=== PATIENT | male | born 1995 | race Caucasian/White ===

== ENCOUNTER 2022-05-02 10:23 | Emergency (ER) | payer MEDICAID, SELFPAY ==
[2022-05-02 10:24] VITALS: BP 151/95; PULSE 102; RESP 16; TEMP 36.3; O2SAT 98; BMI 26.2
--- NOTE | 2022-05-02 10:32 | RAD_ITS ---
STUDY: X-RAY - RIGHT ANKLE REASON FOR EXAM: Male, 26 years old. Pain and swelling following injury. TECHNIQUE: 3 view(s) of the ankle. COMPARISON: None. FINDINGS: Normal visualized distal tibia and fibula. Normal medial and lateral malleoli. Normal tibiotalar articulation and ankle mortise. Normal visualized talus and calcaneus. The visualized subtalar, talonavicular, calcaneocuboid and tarsal articulations are normal. Diffuse lateral soft tissue swelling. Small ankle joint effusion. RAD/Ankle min 3 Views IMPRESSION: Diffuse lateral soft tissue swelling and small ankle joint effusion. Electronically Signed: Obi Tyson MD at 10:58 EDT ,
--- NOTE | 2022-05-02 10:32 | RAD_ITS ---
STUDY: X-RAY - RIGHT FOOT CLINICAL: Male, 26 years old. Pain and swelling following injury. TECHNIQUE: 3 view(s) of the foot. COMPARISON: None. FINDINGS: Normal talus, calcaneus, and tarsal bones. Normal visualized subtalar, talonavicular, calcaneocuboid, tarsal and tarsometatarsal articulations. Normal metatarsi. Normal metatarsophalangeal joint of the great toe. Normal tibial and fibular sesamoid bones. Normal interphalangeal joint of the great toe. Normal phalanges of the great toe. Normal second through fifth metatarsophalangeal joints. Normal interphalangeal joints and phalanges of the lesser toes. Lateral soft tissue swelling. RAD/Foot min 3 Views IMPRESSION: Lateral soft tissue swelling. Electronically Signed: Obi Tyson MD at 10:59 EDT ,
--- NOTE | 2022-05-02 10:41 | EDS_ITS ---
HPI <TRINH Smyth - Last Filed: 05/02/22 11:42> History of Present Illness Chief Complaint: Lower Extremity Injury Narrative Narrative: 26-year-old male with no significant ankle history presents the emergency department for right ankle pain. Patient was playing santos ball this morning, jumped up and inverted his ankle. He has had injuries to this ankle in the past. He denies any other injury. Patient states that he was able to walk off the court, did think about playing again however the pain persisted. He states that the swelling got worse, this made him uncomfortable and is here for evaluation. PFSH <TRINH Smyth - Last Filed: 05/02/22 11:42> [facility], [facility] Medical History no medical history Home Medications ibuprofen 800 mg PO Q8H #20 tab 05/02/22 [Rx Last Taken Unknown] Allergy/AdvReac Type Severity Reaction Status Date / Time No Known Allergies Allergy Verified 05/02/22 10:25 Surgical History no surgical history Social History Smoking Status: Never smoker ROS <TRINH Smyth - Last Filed: 05/02/22 11:42> ROS ED ROS Narrative Constitutional: Negative for fever, chills, weight loss, weakness Eyes: Negative for vision loss, vision change, double vision ENT: Negative for any sore throat, ear pain, congestion Cardiovascular: Negative for any chest pain, tightness, palpitations Respiratory: Negative for any cough, sputum production, hemoptysis, dyspnea, dyspnea on exertion, orthopnea Gastrointestinal: Negative for any abdominal pain, nausea, vomiting, diarrhea, constipation, blood in stool, blood in vomit : Negative for any urinary frequency, dysuria, retention, blood in urine Muscle skeletal: Negative for any muscle joint pain, stiffness, myalgias, arthralgias, neck pain, back pain. Positive for right ankle pain Neurological: Negative for any headache, syncope, numbness or tingling, dizziness Skin: Negative for any rashes, lumps, itching, abrasions, lacerations Psychiatric: Negative for any depression, anxiety, stress, suicidal ideation, homicidal ideation Hematologic: Negative for any easy bruising, excessive bruising, easy bleeding Allergies: Negative for any eczema, hives, rash EXAM <TRINH Smyth Last Filed: 05/02/22 11:42> Physical Exam Narrative Exam Narrative: Vital signs reviewed. Extremities: Patient's right ankle shows ecchymosis, edema to both the lateral, medial malleolus. Patient swelling does go up to the distal tibia-fibula. Patient does have +2 pedal pulse. Has good feeling to the foot. Negative for any neurological focal deficit. He does have discomfort when trying to dorsiflex, plantarflex. Neuro: Cranial nerves II through XII intact, no focal neurological deficits. Skin: Clean dry and intact with no rash, purpura, petechiae, vesicles or pustules. Backs/flank: No CVA tenderness, no midline spinal tenderness, no deformity. Psych: Normal mood and affect. No SI, HI or acute psychosis. Const Vital Signs: 05/02/22 10:24 Temperature 97.4 F L Temperature Source Temporal Pulse Rate 102 H Respiratory Rate 16 Blood Pressure 151/95 H Blood Pressure Mean 113 Pulse Ox 98 Oxygen Delivery Method Room Air Positive well nourished and well developed General Appearance ED: well developed <Dr. Ronald Zavala MD - Last Filed: 05/02/22 13:47> Physical Exam Const Vital Signs: 05/02/22 10:24 Temperature 97.4 F L Temperature Source Temporal Pulse Rate 102 H Respiratory Rate 16 Blood Pressure 151/95 H Blood Pressure Mean 113 Pulse Ox 98 Oxygen Delivery Method Room Air MDM <TRINH Smyth - Last Filed: 05/02/22 11:42> [facility] MDM Narrative Medical decision making narrative: Patient appears well, patient appears nontoxic, vital signs are stable. Patient presents to the emergency department with right ankle pain following playing basketball today. Patient's physical examination shows a significant amount of swelling around the bilateral m alleoli, patient did receive x-rays of the right ankle as well as the right foot. These were read by the ER attending, they did show diffuse lateral soft tissue swelling and small ankle joint effusion, negative for any osseous abnormality of the foot or right ankle. Due to significant swelling, concern for ligamental injury, patient placed in a walking boot, given crutches and will be nonweightbearing for 1 week. He will receive orthopedic follow-up for further work-up secondary to these significant ankle injuries. He will be given ibuprofen 800 mg for home, instructed to return for any worsening symptoms. Patient is agreeable with the plan and is stable for discharge. Radiography Diagnostic Testing: Clinical Impression(s) from Imaging Studies Ankle X-Ray 05/02/22 10:32 IMPRESSION: Diffuse lateral soft tissue swelling and small ankle joint effusion. Electronically Signed: Obi Tyson MD at 10:58 EDT , Foot X-Ray 05/02/22 10:32 IMPRESSION: Lateral soft tissue swelling. Electronically Signed: Obi Tyson MD at 10:59 EDT , <Dr. Ronald Zavala MD - Last Filed: 05/02/22 13:47> [facility] MDM Narrative Medical decision making narrative: I have personally performed a face to face assessment of the patient and have reviewed the CLEM Note. I performed a subs tantive portion of the visit including all aspects of the following. My hardy findings include: History is patient was playing basketball and had an inversion injury of his right ankle this morning about 630. He does report a history of multiple prior injuries to this ankle. No other injury. Exam shows fair amount of swelling diffusely around the ankle but mostly in the anterior lateral aspect. But there is no deformity. No tenderness at the calcaneus or fifth metatarsal. Achilles is intact to palpation and Keller test. No proximal tenderness. Pulse capillary refill sensation is intact distally. The ankle has a pretty large amount of swelling and is really hard to stress the ligaments I think due to this. Because of the amount of swelling I am concerned about ligamentous injury but do not get any laxity on exam. Medical Decison Making x-rays show no fracture. I am concerned about ligamentous injury. I think this patient may do well in a cast boot, nonweightbearing, crutches and close follow-up for repeat exam. He should elevate well above the heart. Radiography Diagnostic Testing: Clinical Impression(s) from Imaging Studies Ankle X-Ray 05/02/22 10:32 IMPRESSION: Diffuse lateral soft tissue swelling and small ankle joint effusion. Electronically Signed: Obi Tyson MD at 10:58 EDT , Foot X-Ray 05/02/22 10:32 IMPRESSION: Lateral soft tissue swelling. Electronically Signed: Obi Tyson MD at 10:59 EDT , Discharge Plan Triage Chief Complaint: Lower Extremity Injury ED Midlevel Provider: Endy Aguilar ED Provider: Ronald Zavala Dx/Rx/DC Orders Clinical Impression: Ankle sprain Instructions: Treating Ankle Sprains, Self-Care for Strains and Sprains Prescriptions: New ibuprofen 800 mg tablet 800 mg PO Q8H Qty: 20 RF: 0 Primary Care Provider: Care Physician,No Primary Referrals: Kota Nowak, [STAFF PHYSICIAN] - As Needed Care Physician,No Primary [Primary Care Provider] - Activity Restrictions/Additional Instructions: Please perform nonweightbearing activity for 1 week. Use the walking boot as needed. Please ice, elevate and use compression. Dr. Nowak is an orthopedic to follow-up with due to your significant ligamental injuries to your right ankle. Print Language: Divehi Disposition Disposition: Home, Self Care Discharge Date/Time: 05/02/22 11:49
--- NOTE | 2022-05-02 11:47 | ED.RN ---
unable to get walking boot. air stirrup and harriet ordered as replacement. pt has crutches at home. pt appreciative of care.
== END 2022-05-02 11:49 | disposition home or self-care (01) ==
PROVIDERS: Emergency Provider Emergency Medicine; Visit Provider Emergency Medicine
DX: S93.401A Sprain of unspecified ligament of right ankle, initial encounter (principal); Y93.64 Activity, baseball
CPT/HCPCS: 73610; 73630; 99283

== ENCOUNTER 2022-05-03 10:02 | Emergency (ER) | payer MEDICAID, SELFPAY ==
[2022-05-03 10:04] VITALS: BP 169/98; PULSE 67; RESP 14; TEMP 36.2; O2SAT 95; BMI 26.2
[2022-05-03] MEDS: Ondansetron ODT 4 MG Tablet 8 MG PO (10:29)
[2022-05-03] MEDS: morphine 10 MG/ML Syringe 6 MG IM (10:29)
--- NOTE | 2022-05-03 10:31 | EX.ED.DYSGE1 ---
HPI <TRINH Smyth - Last Filed: 05/03/22 11:32> History of Present Illness Chief Complaint: Lower Extremity Injury Narrative Narrative: 26-year-old male with no stated medical history who was seen here yesterday after a sprained ankle with edema, ecchymosis placed on ibuprofen, nonweightbearing, crutches with Darian wrap presents the emergency department with worsening swelling, pain. Patient states that he has been elevating in bed, he states the pain has moved to his foot, secondary to the edema and his toes are hurting. Patient states that he is using his ibuprofen, he did have some [place] leftover from a prior surgery and try that however he is still in considerable mount of pain. Patient denies any decreased sensation. Patient denies any pain to his calf, knee. PFSH <TRINH Smyth - Last Filed: 05/03/22 11:32> PFSH Medical History no medical history Home Medications ibuprofen 800 mg PO Q8H #20 tab 05/02/22 [Rx Last Taken Unknown] ondansetron 4 mg PO Q8H PRN #10 tab 05/03/22 [Rx Last Taken Unknown] oxycodone-acetaminophen [Percocet] 1 tab PO Q6H PRN 3 Days #10 tab 05/03/22 [Rx Last Taken Unknown] Allergy/AdvReac Type Severity Reaction Status Date / Time No Known Allergies Allergy Verified 05/03/22 10:04 Surgical History no surgical history Social History Smoking Status: Never smoker ROS <TRINH Smyth - Last Filed: 05/03/22 11:32> ROS ED ROS Narrative Constitutional: Negative for fever, chills, weight loss, weakness Eyes: Negative for vision loss, vision change, double vision ENT: Negative for any sore throat, ear pain, congestion Cardiovascular: Negative for any chest pain, tightness, palpitations Respiratory: Negative for any cough, sputum production, hemoptysis, dyspnea, dyspnea on exertion, orthopnea Gastrointestinal: Negative for any abdominal pain, nausea, vomiting, diarrhea, constipation, blood in stool, blood in vomit : Negative for any urinary frequency, dysuria, retention, blood in urine Muscle skeletal: Negative for any muscle joint pain, stiffness, myalgias, arthralgias, neck pain, back pain. Positive for right ankle pain, right foot pain secondary to edema, swelling. Neurological: Negative for any headache, syncope, numbness or tingling, dizziness Skin: Negative for any rashes, lumps, itching, abrasions, lacerations Psychiatric: Negative for any depression, anxiety, stress, suicidal ideation, homicidal ideation Hematologic: Negative for any easy bruising, excessive bruising, easy bleeding Allergies: Negative for any eczema, hives, rash EXAM <TRINH Smyth - Last Filed: 05/03/22 11:32> Physical Exam Narrative Exam Narrative: Vital signs reviewed. Extremities: Patient has edema, ecchymosis along both malleoli, extending into the foot to the toes. Pulse was felt with Doppler secondary to the edema. Patient has worsening pain to the toes secondary to the edema. Compartments are soft, patient has no pain up to his calf. Neurovascular intact. Neuro: Cranial nerves II through XII intact, no focal neurological deficits. Skin: Clean dry and intact with no rash, purpura, petechiae, vesicles or pustules. Backs/flank: No CVA tenderness, no midline spinal tenderness, no deformity. Psych: Normal mood and affect. No SI, HI or acute psychosis. Const Vital Signs: 05/03/22 10:04 Temperature 97.2 F L Temperature Source Temporal Pulse Rate 67 Respiratory Rate 14 Blood Pressure 169/98 H Blood Pressure Mean 121 Pulse Ox 95 Oxygen Delivery Method Room Air Positive well nourished and well developed General Appearance ED: well developed <Dr. Dali Teixeira MD - Last Filed: 05/03/22 11:32> Physical Exam Const Vital Signs: 05/03/22 10:04 Temperature 97.2 F L Temperature Source Temporal Pulse Rate 67 Respiratory Rate 14 Blood Pressure 169/98 H Blood Pressure Mean 121 Pulse Ox 95 Oxygen Delivery Method Room Air MDM <TRINH Smyth - Last Filed: 05/03/22 11:32> [facility] Narrative Medical decision making narrative: Patient appears to be in mild distress secondary to right ankle pain, patient's vital signs are stable. He looks nontoxic. Patient does have significant edema, ecchymosis to the ankle, dorsal aspect of the foot along both malleoli. Patient does have a strong pedal pulse, Doppler was used secondary for patient's comfort. Patient's compartments are soft, no evidence of compartment syndrome. I will touch base with orthopedic Dr. Nowak to ensure that the patient is seen early this upcoming week. 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 He will continue to be nonweightbearing until seen by Dr. Nowak. He was given 6 mg of IM morphine, Zofran here, he will be sent home with narcotic pain medicine as well as nausea medicine. He will continue his ibuprofen 800s. Patient instructed return for any worsening uncontrolled pain, fever chills nausea vomiting. He will follow-up with orthopedics this upcoming week. Is speak with Dr. Nowak, he did recommend a tib-fib x-ray, this will be completed. I also offered the patient a fiberglass splint for stability, compression, he declined that at this time. Patient will follow-up closely with Dr. Nowak on Thursday. Instructed return for any worsening symptoms. <Dr. Dali Teixeira MD - Last Filed: 05/03/22 11:32> [facility] Treatment and Re-Evaluation Narrative: Patient seen and evaluated with CLEM. I personally interviewed and examined the patient. I was involved in all aspects of patient's orders, interpretation of results, and treatment. Patient presents secondary to right foot pain and swelling. Patient was seen yesterday after rolling his ankle. Foot and ankle x-rays were obtained at that time and unremarkable. Patient states has been icing and elevating his ankle. Today he presents secondary to significant right foot pain and swelling. Patient sitting upright in bed no acute distress. Lower extremity examination reveals edema to the right ankle and foot. Ecchymosis is noted. He is able to wiggle toes. He has good cap refill and sensation distally. There is no evidence of compartment syndrome at this time. Patient treated with analgesics. We discussed appropriate elevation. With patient having 2 visits in 2 days we did speak with orthopedics to help arrange close follow-up. He did recommend obtaining a tib-fib x-ray which was done and per my interpretation reveals no fracture. Patient will remain nonweightbearing and follow-up in the office early this week. Analgesics will be prescribed for him Discharge Plan Triage Chief Complaint: Lower Extremity Injury ED Midlevel Provider: Endy Aguilar ED Provider: Dali Teixeira Dx/Rx/DC Orders Clinical Impression: Ankle sprain, Edema Prescriptions: New oxycodone-acetaminophen [Percocet] 5-325 mg tablet 1 tab PO Q6H PRN (Reason: pain) 3 Days Qty: 10 RF: 0 ondansetron 4 mg tablet,disintegrating 4 mg PO Q8H PRN (Reason: nausea and vomiting) Qty: 10 RF: 0 No Action ibuprofen 800 mg tablet 800 mg PO Q8H Qty: 20 RF: 0 Primary Care Provider: Care Physician,No Primary Referrals: Kota Nowak, [STAFF PHYSICIAN] - Care Physician,No Primary [Primary Care Provider] - Activity Restrictions/Additional Instructions: I spoke with Dr. Nowak, called Thursday to arrange an appointment to be seen. Keep elevated. Use pain medicine, anti-inflammatories, nausea medicine as needed. Remain nonweightbearing Print Language: Moroccan Disposition Disposition: Home, Self Care
--- NOTE | 2022-05-03 10:52 | RAD_ITS ---
STUDY: X-RAY - RIGHT TIBIA AND FIBULA REASON FOR EXAM: Male, 26 years old. Pain after a fall TECHNIQUE: 4 view(s) of the tibia and fibula were obtained. COMPARISON: None. FINDINGS: Normal visualized tibia. Normal visualized fibula. Diffuse nonspecific soft tissue swelling about the ankle RAD/Tibia & Fibula 2 Views IMPRESSION: Normal x-ray examination of the tibia and fibula. Soft tissue swelling Electronically Signed: Trevor Moreira MD at 11:32 EDT ,
== END 2022-05-03 11:40 | disposition home or self-care (01) ==
LOC: ED 11:09
PROVIDERS: Emergency Provider Emergency Medicine; Visit Provider Emergency Medicine
DX: S93.401A Sprain of unspecified ligament of right ankle, initial encounter (principal); R60.0 Localized edema; X58.XXXA Exposure to other specified factors, initial encounter
CPT/HCPCS: 73590; 96372; 99283